=== PATIENT | female | born 1945 | race Caucasian/White ===

== ENCOUNTER → 2021-10-01 11:06 | Outpatient (BNVA) | payer MEDICARE, SELFPAY | PROVIDERS: PCP Internal Medicine; Visit Provider Psychiatry & Neurology Neurology | DX: G23.2 Striatonigral degeneration (principal); I95.1 Orthostatic hypotension | CPT/HCPCS: 99212 ==

== ENCOUNTER → 2021-12-03 11:00 | Outpatient (BNVA) | payer MEDICARE, SELFPAY | PROVIDERS: PCP Internal Medicine; Visit Provider Psychiatry & Neurology Neurology | DX: G23.2 Striatonigral degeneration (principal); I95.1 Orthostatic hypotension | CPT/HCPCS: 99212 ==

== ENCOUNTER → 2022-04-22 10:59 | Outpatient (BNVA) | payer MEDICARE, SELFPAY | PROVIDERS: PCP Internal Medicine; Visit Provider Psychiatry & Neurology Neurology | DX: G23.2 Striatonigral degeneration (principal); I95.1 Orthostatic hypotension | CPT/HCPCS: 99212 ==

== ENCOUNTER → 2022-06-30 10:06 | Outpatient (BNVA) | payer MEDICARE, SELFPAY | PROVIDERS: PCP Internal Medicine; Visit Provider Psychiatry & Neurology Neurology | DX: G20 Parkinson's disease (principal); G23.2 Striatonigral degeneration; I95.1 Orthostatic hypotension; Z79.899 Other long term (current) drug therapy | CPT/HCPCS: 99212 ==

== ENCOUNTER → 2022-10-28 13:27 | Outpatient (BNVA) | payer MEDICARE, SELFPAY | PROVIDERS: PCP Internal Medicine; Visit Provider Psychiatry & Neurology Neurology | DX: G23.2 Striatonigral degeneration (principal); I95.1 Orthostatic hypotension | CPT/HCPCS: 99212 ==

== ENCOUNTER 2023-05-02 13:55 | Outpatient (AMB) | payer MEDICARE, SELFPAY ==
--- NOTE | 2023-05-02 14:11 | MHC.OFFVIS ---
Intake Vital Signs 05/02/23 14:15 Height 5 ft 3 in Weight 130 lb BMI 23.0 BP 122/68 Blood Pressure Location Lt brachial Position Sitting Respiration 16 Pulse 95 Pulse Source Pulse Oximeter Pulse Oximetry (%) 95 Oxygen Delivery Method Room Air Intake Visit Reasons: 6m follow up Parkinson-lvm Intake Note: Pt presents to the office for 6 month follow up for Parkinson's. Pt is here with Hilario. Pt reports tremors have gotten muvh better, however, she falls easily now. 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 she had 1 fall 1 month ago when she tried down to pick something form the floor. She is accompanied by her who helps with the history. No worsening since last visit. . She is maintaining her weight. Bowel movements are regular she drinks 3-4 cups of water a day she denies hallucinations .constipation as better with increasing fiber and medications .she takes senna daily and miralax occasionally her memory is stable she is slower . she has word finding difficulties she is confused with dates. she is independent in most ADLs. she barely exercises. No dizziness. she reports low energy she shuffles ,uses a walker at home [facility] Medical History Hyperlipidemia Arthritis Surgical History History of hip surgery History of cholecystectomy Social History Alcohol intake: never Patient Tobacco Use Status: Never used Tobacco Physical Exam Vital Signs: Last Vital Signs Pulse 95 05/02/23 14:15 Resp 16 05/02/23 14:15 BP 122/68 05/02/23 14:15 Pulse Ox 95 05/02/23 14:15 Oxygen Delivery Method Room Air 05/02/23 14:15 BMI result Body Mass Index 23.0 Const General: cooperative and no acute distress Nutritional Appearance: underweight Neuro Other: Moderately decreased facial expression and blink. Mild anticollis Decreased range of motion in the neck. . Right UE tremors rest Bilateral cogwheel rigidity 2+ in upper extremities. R>L Fine finger movements with decreased bilaterally Foot the decreased bilaterally. 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 and 15:00. Change carbidopa levodopa 25 100 tablet 6 tabs a day(1 tab 6 times a day ). Monitor blood pressure. Continue exercise. Declines PT and home PT Caffiene in am Discussed fall prevention Coding Level of Care Code Est Pt Level 4 (13923) Diagnoses Parkinson's variant of multiple system atrophy G23.2 Orthostatic hypotension I95.1
[2023-05-02 14:15] VITALS: BP 122/68; PULSE 95; RESP 16; O2SAT 95; BMI 23.0
== END 2023-05-02 14:44 | disposition home or self-care (01) ==
PROVIDERS: Visit Provider Psychiatry & Neurology Neurology
DX: G23.2 Striatonigral degeneration (principal); I95.1 Orthostatic hypotension
CPT/HCPCS: 99214

== ENCOUNTER → 2023-05-02 13:55 | Outpatient (BNVA) | payer MEDICARE, SELFPAY | PROVIDERS: Visit Provider Psychiatry & Neurology Neurology | DX: G23.2 Striatonigral degeneration (principal); I95.1 Orthostatic hypotension | CPT/HCPCS: 99212 ==

== ENCOUNTER 2023-10-27 10:55 | Outpatient (AMB) | payer MEDICARE, SELFPAY ==
--- NOTE | 2023-10-27 10:57 | A.OFFVIS_ITS ---
Intake Vital Signs 10/27/23 10:58 Height 5 ft 3 in BP 118/72 Blood Pressure Location Lt brachial Position Sitting Respiration 16 Pulse 95 Pulse Source Pulse Oximeter Pulse Oximetry (%) 96 Oxygen Delivery Method Room Air Intake Visit Reasons: 6 mnts f/u appt-LVM Intake Note: Pt presents for a 6 month follow up for Parkinson's and orthostatic hypotension. 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 she had 1 fall - got up form the chair and fell over. Her BP have been stable She is accompanied by her who helps with the history. No worsening since last visit. . She is maintaining her weight. she is better in the morning and after noon she slows down. Bowel movements are regular she drinks 6 cups of water a day she denies hallucinations .constipation as better with increasing fiber and medications .she takes senna daily and miralax occasionally her memory is stable she is slower . she has word finding difficulties she is confused with dates.she is practicing with calenders. she is independent in most ADLs. she barely exercises. No dizziness. she shuffles ,uses a walker at home [facility] Medical History Hyperlipidemia Arthritis Surgical History History of hip surgery History of cholecystectomy Social History Alcohol intake: never Patient Tobacco Use Status: Never used Tobacco Physical Exam Vital Signs: Last Vital Signs Pulse 95 10/27/23 10:58 Resp 16 10/27/23 10:58 BP 118/72 10/27/23 10:58 Pulse Ox 96 10/27/23 10:58 Oxygen Delivery Method Room Air 10/27/23 10:58 Const General: cooperative and no acute distress Nutritional Appearance: underweight Neuro Other: Moderately decreased facial expression and blink. Mild anticollis Decreased range of motion in the neck. . Right UE tremors rest Bilateral cogwheel rigidity 2+ in upper extremities. R>L Fine finger movements with decreased bilaterally Foot the decreased bilaterally. 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 and 15:00. Change carbidopa levodopa 25 100 tablet 5 tabs a day(1 tab 5 times a day ). Monitor blood pressure. Continue exercise. Declines PT and home PT Caffiene in am Discussed fall prevention Medications: Changed From carbidopa-levodopa 25-100 mg 2 tabs PO TID 90 days 540 tabs 6RF To carbidopa-levodopa 25-100 mg 1 tab PO .5 times a day 90 days 450 tabs 6RF Coding Level of Care Code Est Pt Level 4 (74548) Diagnoses Parkinson's variant of multiple system atrophy G23.2 Orthostatic hypotension I95.1
[2023-10-27 10:58] VITALS: BP 118/72; PULSE 95; RESP 16; O2SAT 96
== END 2023-10-27 11:38 | disposition home or self-care (01) ==
PROVIDERS: Visit Provider Psychiatry & Neurology Neurology
DX: G23.2 Striatonigral degeneration (principal); I95.1 Orthostatic hypotension
CPT/HCPCS: 99214

== ENCOUNTER → 2023-10-27 10:55 | Outpatient (BNVA) | payer MEDICARE, SELFPAY | PROVIDERS: Visit Provider Psychiatry & Neurology Neurology | DX: G23.2 Striatonigral degeneration (principal); I95.1 Orthostatic hypotension | CPT/HCPCS: 99212 ==

== ENCOUNTER 2024-04-30 09:59 | Outpatient (AMB) | payer MEDICARE, SELFPAY ==
--- NOTE | 2024-04-30 10:00 | MHC.OFFVIS ---
Vital Signs 04/30/24 10:07 Height 5 ft 3 in Weight 130 lb BMI 23.0 BP 100/50 L Blood Pressure Location Lt brachial Position Sitting Pulse 112 H Pulse Source Pulse Oximeter Pulse Oximetry (%) 97 Oxygen Delivery Method Room Air Intake Visit Reasons: 6 month F/U Intake Note: Patient presents for a 6 mo fu- Orthostatic hypotension. Patient feeling the same . Enterprise Resource Analyst Required: No Accompanied by: Spouse Allergies No Known Allergies Allergy (Verified 04/30/24 10:03) Medication List - Last Reconciled 04/30/24 by Keisha Julian MD amantadine HCl 50 mg (5 mL) PO BID ascorbic acid (vitamin C) mg PO carbidopa-levodopa 25-100 mg 1 tab PO .5 times a day 90 days cholecalciferol (vitamin D3) 250 mcg PO QWEEK citalopram 20 mg PO QAM 90 days droxidopa 200 mg (0.6667 x 300 mg) PO TID 90 days lovastatin 40 mg PO BEDTIME sennosides (senna) 8.6 mg PO DAILY vibegron (Gemtesa) 75 mg PO DAILY zinc acetate (Galzin) 50 mg PO DAILY HPI Comments Details: 78-year-old female with 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 she is doing OK. she is going to in [place] . They moved to [facility] and are trying to get to a closer Movement disorder clinic No falls SHe has dyskinesias throughtout the day She is accompanied by her who helps with the history. No worsening since last visit. . She is maintaining her weight. she is better in the morning and after noon she slows down. Bowel movements are regular she drinks 6 cups of water a day she denies hallucinations .constipation as better with increasing fiber and medications .she takes senna daily and miralax occasionally her memory is stable she is slower . she has word finding difficulties she is confused with dates.she is practicing with calenders. she is independent in most ADLs. she barely exercises. No dizziness. she shuffles ,uses a walker at home [facility] Medical History Hyperlipidemia Arthritis Surgical History History of hip surgery History of cholecystectomy Social History Alcohol intake: never Patient Tobacco Use Status: Never used Tobacco Physical Exam Vital Signs: Last Vital Signs Pulse 112 H 04/30/24 10:07 BP 100/50 L 04/30/24 10:07 Pulse Ox 97 04/30/24 10:07 Oxygen Delivery Method Room Air 04/30/24 10:07 BMI result Body Mass Index 23.0 Const General: cooperative and no acute distress Nutritional Appearance: underweight Neuro Other: Moderately decreased facial expression and blink. Mild anticollis Decreased range of motion in the neck. . Right UE tremors rest Bilateral cogwheel rigidity 2+ in upper extremities. R>L Fine finger movements with decreased bilaterally Foot the decreased bilaterally. 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 and 15:00. Change carbidopa levodopa 25 100 tablet 5 tabs a day(1 tab 5 times a day ). Monitor blood pressure. amantadine 50mg ( 5ml) bid for dyskinesias - discussed side effects Continue exercise. PT and home PT Caffiene in am Discussed fall prevention Medications: New amantadine HCl 50 mg (5 mL) PO BID 1,000 mL 0RF Changed From droxidopa give consistently with OR without food, upon rising, at midday, late PM/at least 3hrs before bedtime 200 mg PO TID 90 days 270 caps 3RF To droxidopa give consistently with OR without food, upon rising, at midday, late PM/at least 3hrs before bedtime 200 mg (0.6667 x 300 mg) PO TID 90 days 180 caps 3RF Coding Level of Care Code Est Pt Level 4 (85821) Complex EM visit Add On G2211 Diagnoses Parkinson's variant of multiple system atrophy G23.2 Orthostatic hypotension I95.1
[2024-04-30 10:07] VITALS: BP 100/50; PULSE 112; O2SAT 97; BMI 23.0
== END 2024-04-30 10:23 | disposition home or self-care (01) ==
PROVIDERS: Visit Provider Psychiatry & Neurology Neurology
DX: G23.2 Striatonigral degeneration (principal); I95.1 Orthostatic hypotension
CPT/HCPCS: 99214; G2211

== ENCOUNTER → 2024-04-30 09:59 | Outpatient (BNVA) | payer MEDICARE, SELFPAY | PROVIDERS: Visit Provider Psychiatry & Neurology Neurology | DX: I95.1 Orthostatic hypotension (principal); G23.2 Striatonigral degeneration | CPT/HCPCS: 99212 ==